=== PATIENT | male | born 1985 | race Caucasian/White ===

== ENCOUNTER 2024-10-04 12:53 | Emergency (ER) | payer MEDICAID, OTHER ==
[~2024-10-04] VITALS: Ht 190.5 cm; Wt 72.5 kg
[2024-10-04 13:01] VITALS: BP 115/68; TEMP 97.8; O2SAT 97
== END 2024-10-04 15:30 | disposition left against medical advice (07) ==
LOC: M ED 12:53
DX: Z53.21 Procedure and treatment not carried out due to patient leaving prior to being seen by health care provider (principal)